=== PATIENT | male | born 1980 | race African-American/Black ===

== ENCOUNTER 2019-04-22 17:18 | Emergency (ER) | payer OTHER ==
--- NOTE | 2019-04-22 18:22 | CT ---
CT cervical spine Technique: Multiple axial sections were obtained from above C1 inferiorly to the bottom of T2. Reconstructed sagittal and and coronal images were obtained. Findings: Posterior skull is intact. Mild degenerative change is noted between the dens and anterior arch of C1. Vertebral body heights and disc spaces are maintained. No fracture is appreciated. No bony central or bony neural foraminal stenosis is seen. Visualized lung apices are clear. No abnormal subluxation is seen. Impression: 1. Slight degenerative change. 2. Nothing acute is appreciated on CT study of the cervical spine. Diagnostic code #2 Study was dictated in [place] Standard Time
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
== END 2019-04-22 19:18 | disposition home or self-care (01) ==
LOC: JD.ED 17:18
DX: S13.9XXA Sprain of joints and ligaments of unspecified parts of neck, initial encounter (principal); V53.5XXA Driver of pick-up truck or van injured in collision with car, pick-up truck or van in traffic accident, initial encounter; Y92.410 Unspecified street and highway as the place of occurrence of the external cause
CPT/HCPCS: 72125; 72125-26; 99282; 99285-25